=== PATIENT | female | born 2000 | race Caucasian/White ===

== ENCOUNTER 2023-12-30 20:57 | Emergency (ER) | payer SELFPAY ==
[2023-12-30 21:22] VITALS: BP 116/54; PULSE 91; RESP 20; TEMP 37.2; O2SAT 100; BMI 22.3
[2023-12-30 21:54] LABS: MANUAL DIFF FLAG NO
[2023-12-30 21:56] LABS: Basophils Percent Auto 0.6 % (0-2); Eosinophils Percent Auto 0.4 % (0-4); Hemoglobin 13.7 g/dl (12.0-16.0); Imm Gran Abs Auto 0.02 X10*3/uL (0.00-0.03); Imm Gran Pct Auto 0.4 % (0.0-0.4); Lymphocytes Absolute Auto 0.7 X10*3/uL (1.2-4.9); Lymphocytes Percent Auto 15.2 % (20-40); Mean Corpuscular Hemoglobin 30.4 pg (27.0-33.0); Mean Platelet Volume 8.1 fL (9.4-12.3); Monocytes Absolute Auto 0.4 X10*3/uL (0.1-1.2); Monocytes Percent Auto 8.6 % (2-11); Neutrophils Absolute Auto 3.6 x10*3/uL (2.0-8.3); Neutrophils Percent Auto 74.8 % (45-73); Platelet Count 210 X10*3/uL (160-400); Red Blood Count 4.51 X10*6/uL (4.20-5.50); White Blood Count 4.8 X10*3/uL (4.8-10.8)
[2023-12-30 21:57] LABS: Appearance Urine Cloudy; Color Urine Yellow; Glucose Urine UA Negative (Negative); Leukocyte Esterase Urine Large (3+) (Negative); Nitrite Urine Negative (Negative); UMIC TRIGGER UACC YES; Urine Blood Moderate (2+) (Negative); Urine Ketones 40 mg/dL (Negative); Urine Protein 100 (2+) mg/dL (Neg-Trace)
[2023-12-30 22:14] LABS: Alanine Aminotransferase 7 U/L (0-31); Albumin Level 4.6 g/dL (3.5-5.0); Alkaline Phosphatase 48 U/L (39-117); Anion Gap 16 (12-20); Aspartate Amino Transferase 16 U/L (5-31); Bilirubin Direct 0.1 mg/dL (0.0-0.5); Bilirubin Total 0.4 mg/dL (0.0-1.0); Blood Urea Nitrogen 6 mg/dL (9-16); Calcium 9.8 mg/dL (8.4-10.2); Carbon Dioxide 22 mmol/L (22-29); Chloride 104 mmol/L (96-108); Creatinine Clr Calc Pharmacy 119.9; Estimated Glomerular Filt Rate > 60; Glucose Random 79 mg/dL (60-115); Potassium 3.5 mmol/L (3.3-5.1); Sodium 138 mmol/L (135-145); Total Protein 8.1 g/dL (6.5-8.0)
[2023-12-30 22:22] LABS: Bacteria Urine 4+ (None Seen); Hyaline Casts Urine 0-2 /LPF (0-2); Squamous Epithelial Cell Urine >20 /HPF (0-2); UACC Culture Trigger YES; WBC Urine >50 /HPF (0-5)
[2023-12-30 22:44] LABS: HCG Quantitative > 225000 mIU/mL
--- NOTE | 2023-12-30 23:32 | PC.NURSE ---
Provider to bedside for primary eval. Pt endorsing N/V, foul smelling cloudy urine, urinary urgency. Currently 6 weeks . Denies vaginal bleeding. Lab results received, awaiting disposition.
--- NOTE | 2023-12-30 23:40 | ED_ITS ---
HPI - Abdominal Pain General Chief Complaint: Abdominal Pain Stated Complaint: UTI and vomiting Time Seen by Provider: 12/30/23 23:08 Source: patient Mode of arrival: ambulatory Limitations: no limitations History of Present Illness ED Provider: Dr. Ke Uribe HPI narrative: 23-year-old female approximately 8 weeks who presents emergency department for evaluation of nausea, vomiting and urinary tract infection. The patient states that she has had constant nausea and vomiting. She states that over the last 2 days she has had increased nausea with lack of appetite and she is having difficulty keeping things down secondary to her nausea. She also states that urine is very a cloudy and has a foul odor to it. She also has a burning sensation when she urinates and she has urgency. She denied abdominal pain. She states that she has not had any OBGYN care for this and she is waiting until she can get insurance before she is going to seek care. She also states that she wants to terminate the . Related Data Previous Rx's ?Medication ?Instructions ?Recorded amoxicillin 500 mg capsule 500 mg PO TID 5 days #15 caps 12/30/23 ondansetron 4 mg disintegrating 4 mg PO Q6-8H PRN nausea and 12/30/23 tablet vomiting #20 tabs Allergies Allergy/AdvReac Type Severity Reaction Status Date / Time latex AdvReac Rash Verified 12/30/23 21:24 Review of Systems Review of Systems Yes all other systems are reviewed and are negative [facility] Past Medical History Medical History (Updated 01/01/24 @ 00:01 by Background Dalinda) No known health problems Social History Social History Smoked in Last 30 Days: No Use of substances other than those prescribed or required for medical reasons: No Advance Directives: No Advance Directives Information Provided: No Do you have a plan to hurt others: No Plan Patient : Yes Physical Exam ED Vital Signs: Vital Signs - 24 hr 12/30/23 21:22 Temperature 98.9 F Pulse Rate 91 Respiratory Rate 20 Blood Pressure 116/54 L Pulse Oximetry 100 Oxygen Delivery Method Room Air BMI result Body Mass Index 22.3 vital signs revealed an elevated respiratory rate of 20 otherwise unremarkable. Exam: General: Awake, alert in no distress Head: Normocephalic, atraumatic EENT: PERRL, Lids normal, sclera normal, conjunctiva normal, nose normal , ears normal, throat without erythema or exudates Neck: Supple, no adenopathy Lung: breath sounds symmetric, no wheezing, rales or rhonchi Chest: symmetric movement, nontender Heart: regular rate and rhythm, normal S1, S2 no murmurs or rubs Abdomen: soft, non-tender, nondistended, normal bowel sounds Back: no vertebral tenderness, no CVAT Extremities: no deformities, moves all extremities symmetrically Neuro: Awake, alert, oriented, normal speech, cranial nerves intact, moves all extremities symmetrically Psych: Pleasant, cooperative Medical Decision Making Medical Decision Making [facility] Narrative: 23-year-old female approximately 8 weeks who presents emergency department for evaluation of nausea, vomiting and urinary tract infection symptoms which include cloudy urine, foul odor to the urine, dysuria and urgency. She denied abdominal pain.. The patient states that she has had constant nausea with occasional vomiting. She states she has had a decreased appetite secondary to the nausea is difficult to eat and keep things down. Vital signs revealed an elevated respiratory rate otherwise were unremarkable. The patient's physical examination was also unremarkable. Differential diagnosis: Includes but is not limited to acute cystitis, pyelonephritis, electrolyte abnormalities, anemia Following evaluation was ordered: CBC, CMP, quantitative beta-hCG, urinalysis Patient was initially treated with the following: amoxicillin 500 mg orally, Zofran 4 mg ODT Course: my interpretation patient's laboratory evaluation is as follows: CBC was normal. CMP was normal. Quantitative beta-hCG was appropriately elevated at 225,000 hundred twenty five thousand. Urinalysis revealed 2+ blood, positive protein, positive nitrates. Microscopic revealed 11-20 rbc's, greater than 50 WBCs, 4+ bacteria, greater than 20 squamous cells. The patient's UA/microscopic is not a clean-catch specimen however the patient's symptoms are consistent with a urinary tract infection therefore she was treated with amoxicillin 500 mg pills, 1 pill 3 times a day for 5 days. She was also given prescription for Zofran 4 mg ODT, 1 every 6-8 hours as needed for nausea and vomiting. I advised the patient to contact [facility] in [facility] to get help with her and to get help if she decides to terminate the . Admission/Observation Consideration of admission/observation: Escalation of care including admission/observation considered Lab Data [facility] Lab Attestation statement: I reviewed the patient's lab results. 12/30/23 21:46 12/30/23 21:46 Labs: Lab Results 12/30/23 Range/Units 21:46 WBC 4.8 (4.8-10.8) X10*3/uL RBC 4.51 (4.20-5.50) X10*6/uL Hgb 13.7 (12.0-16.0) g/dl Hct 37.0 (37.0-47.0) % MCV 82.0 (80.0-98.0) fL MCH 30.4 (27.0-33.0) pg MCHC 37.0 H (31.0-35.0) g/dl RDW 12.0 (11.0-16.0) % Plt Count 210 (160-400) X10*3/uL MPV 8.1 L (9.4-12.3) fL Immature Gran % (Auto) 0.4 (0.0-0.4) % Neut % (Auto) 74.8 H (45-73) % Lymph % (Auto) 15.2 L (20-40) % [place] % (Auto) 8.6 (2-11) % Eos % (Auto) 0.4 (0-4) % Baso % (Auto) 0.6 (0-2) % Lymph # (Auto) 0.7 L (1.2-4.9) X10*3/uL [place] # (Auto) 0.4 (0.1-1.2) X10*3/uL Eos # (Auto) 0.0 (0.0-0.4) X10*3/uL Baso # (Auto) 0.0 (0.0-0.2) X10*3/uL Abs Immat Gran (auto) 0.02 (0.00-0.03) X10*3/uL Absolute Neuts (auto) 3.6 (2.0-8.3) x10*3/uL Absolute Nucleated RBC 0.000 (0.0-0.012) X10*3/uL Nucleated RBC % (auto) 0.0 (0.0-0.2) /100WBC Sodium 138 (135-145) mmol/L Potassium 3.5 (3.3-5.1) mmol/L Chloride 104 (96-108) mmol/L Carbon Dioxide 22 (22-29) mmol/L Anion Gap 16 (12-20) BUN 6 L (9-16) mg/dL Creatinine 0.63 (0.5-1.4) mg/dL Estim Creat Clear Calc 119.9 Estimated GFR > 60 Random Glucose 79 (60-115) mg/dL Calcium 9.8 (8.4-10.2) mg/dL Total Bilirubin 0.4 (0.0-1.0) mg/dL Direct Bilirubin 0.1 (0.0-0.5) mg/dL AST 16 (5-31) U/L ALT 7 (0-31) U/L Alkaline Phosphatase 48 (39-117) U/L Total Protein 8.1 H (6.5-8.0) g/dL Albumin 4.6 (3.5-5.0) g/dL Beta HCG, Quant > 935760 mIU/mL Urine Color Yellow Urine Appearance Cloudy Urine pH 6.0 (5.0-9.0) Ur Specific [place] 1.020 (1.005-1.025) Urine Protein 100 (2+) H (Neg-Trace) mg/dL Urine Glucose (UA) Negative (Negative) mg/dL Urine Ketones 40 (Negative) mg/dL Urine Blood Moderate (2+) H (Negative) Urine Nitrite Negative (Negative) Ur Leukocyte Esterase Large (3+) H (Negative) Urine RBC 11-20 H (0-2) /HPF Urine WBC >50 H (0-5) /HPF Ur Squamous Epith Cells >20 (0-2) /HPF Urine Bacteria 4+ (None Seen) Hyaline Casts 0-2 (0-2) /LPF Prescription Management I considered prescription management with: Antibiotic and Other ( anti emetics) Chronic Conditions Patient?s care impacted by: Other ( ) Medications Administered Discontinued Medications Generic Name Dose Route Start Last Admin Trade Name Hernanq PRN Reason Stop Dose Admin Amoxicillin 500 mg 12/30/23 23:43 12/31/23 00:02 Amoxicillin 500 Mg Capsule PO 12/30/23 23:44 500 mg ONCE ONE Administration Ondansetron HCl 4 mg 12/30/23 23:43 12/31/23 00:02 Ondansetron Odt 4 Mg Tab.Rapdis TRANSLINGU 12/30/23 23:44 4 mg ONCE STA Administration Discharge Plan Discharge Clinical Impression: First trimester , Urinary tract infection Patient Disposition: Home, Self-Care Instructions: Urinary Tract Infection in Women (ED) Additional Instructions: Your blood work was unremarkable Your blood test was positive (quantitative beta-hCG was greater than 225,000). Urinalysis is consistent with a urinary tract infection Take amoxicillin 500 mg pills, 1 pill 3 times a day for 5 days, this should treat your urinary tract infection Take Zofran ODT 4 mg pills, 1 pill dissolved in your mouth every 8 hours as needed for nausea and vomiting. Please return to the emergency department if your symptoms get worse or if you develop any symptoms that are concerning to you. Call [facility] or [facility] tomorrow to get assistance with your decision to determine your Prescriptions: New amoxicillin 500 mg capsule 500 mg PO TID 5 Days Qty: 15 0RF ondansetron 4 mg tablet,disintegrating 4 mg PO Q6-8H PRN (Reason: nausea and vomiting) Qty: 20 0RF Interventions: ED Discharge Assessment Last Done: 12/31/23 00:04 Discharge Date/Time: 12/31/23 00:07 Print Language: Spanish
[2023-12-31] MEDS: Ondansetron ODT 4 MG TAB.RAPDIS TRANSLINGU (00:02)
[2023-12-31] MEDS: Amoxicillin 500 MG CAPSULE PO (00:02)
[2023-12-31 00:04] VITALS: BP 104/63; PULSE 73; RESP 18; TEMP 36.7; O2SAT 98
== END 2023-12-31 00:07 | disposition home or self-care (01) ==
PROVIDERS: Physician Assistant Medical; Emergency Provider Emergency Medicine Emergency Medical Services
DX: O23.41 Unspecified infection of urinary tract in pregnancy, first trimester (principal); N39.0 Urinary tract infection, site not specified; R10.2 Pelvic and perineal pain; Z3A.08 8 weeks gestation of pregnancy
CPT/HCPCS: 36415; 80048; 80076; 81001; 84702; 85025; 87086; 87088; 87186; 99284